=== PATIENT | male | born 1935 | race Caucasian/White ===

== ENCOUNTER 2021-04-13 14:15 | Outpatient (CLI) | payer OTHER ==
[~2021-04-13 14:15] MED LIST: ATACAND4 MG; ATORVASTATIN CA10 MG; BUCALSEP SPRAY30 ML MM; CATAFLAM50 MG PO; Cordarone 200 MG TAB PO; FUROSEMIDE40 MG PO; LANOXIN250 MCG PO; LANOXIN62.5 MCG; LoPRESSOR 50MG TAB PO; ORPH100T PO; TOPROL XL25 M1; VASOTEC2.5 MG; XARELTO10 MG; XARELTO20 MG PO; ZITHROMAX500 MG PO
== END 2021-04-13 14:17 | disposition home or self-care (01) ==
LOC: SONOGRAMA 14:15
PROVIDERS: ATTEND Urology
DX: R31.21 Asymptomatic microscopic hematuria (principal); R35.0 Frequency of micturition

== ENCOUNTER 2022-03-09 16:39 | Emergency (ER) | payer OTHER ==
[~2022-03-09] VITALS: Ht 167.6 cm; Wt 81.6 kg
[2022-03-09] MEDS ORDERED: TOPROL XL100 M1 (17:15)
== END 2022-03-09 18:02 | disposition home or self-care (01) ==
LOC: ER 16:39
DX: L76.21 Postprocedural hemorrhage of skin and subcutaneous tissue following a dermatologic procedure (principal); Z98.890 Other specified postprocedural states; Z88.8 Allergy status to other drugs, medicaments and biological substances; I10 Essential (primary) hypertension

== ENCOUNTER 2023-02-02 11:20 | Emergency (ER) | payer OTHER ==
[~2023-02-02] VITALS: Ht 167.6 cm; Wt 61.2 kg
[~2023-02-02 11:20] MED LIST changes: +TOPROL XL100 M1
[2023-02-02] MEDS ORDERED: BUSPIRONE HCL7.5 MG PO (12:19)
[2023-02-02] MEDS ORDERED: FOLIC ACID20 MG (12:19)
[2023-02-02] MEDS ORDERED: NAMENDA10 MG (12:19)
[2023-02-02] MEDS ORDERED: VITAMIN D-40010 MCG (12:19)
[2023-02-02] MEDS ORDERED: ZYRTEC10 M3 (12:20)
[2023-02-02] MEDS ORDERED: APETIGEN L790 MG/15 (12:20)
[2023-02-02] MEDS ORDERED: ARICEPT10 MG (12:20)
[2023-02-02] MEDS ORDERED: SERTRALINE20 MG/1 ML PO (12:20)
[2023-02-02] MEDS ORDERED: BUSPIRONE HCL10 MG (12:21)
== END 2023-02-02 16:05 | disposition home or self-care (01) ==
LOC: ER 11:20
DX: M54.2 Cervicalgia (principal); I10 Essential (primary) hypertension; G30.9 Alzheimer's disease, unspecified; F02.80 Dementia in other diseases classified elsewhere, unspecified severity, without behavioral disturbance, psychotic disturbance, mood disturbance, and anxiety; Z88.8 Allergy status to other drugs, medicaments and biological substances

== ENCOUNTER 2023-03-14 17:32 | Emergency (ER) | payer OTHER ==
[~2023-03-14] VITALS: Ht 180.3 cm; Wt 81.6 kg
[~2023-03-14 17:32] MED LIST changes: +APETIGEN L790 MG/15; +ARICEPT10 MG; +BUSPIRONE HCL10 MG; +BUSPIRONE HCL7.5 MG PO; +FOLIC ACID20 MG; +NAMENDA10 MG; +SERTRALINE20 MG/1 ML PO; +VITAMIN D-40010 MCG; +ZYRTEC10 M3
== END 2023-03-14 21:00 | disposition home or self-care (01) ==
LOC: ER 17:32
DX: U07.1 COVID-19 (principal); Z88.0 Allergy status to penicillin; Z88.6 Allergy status to analgesic agent

== ENCOUNTER 2023-10-25 11:44 | Inpatient (IN) | payer OTHER ==
[~2023-10-25] VITALS: Ht 172.7 cm; Wt 90.7 kg
[2023-10-25 13:57] LABS: ABG PH 7.434 (7.35-7.45)
[2023-10-25 13:58] LABS: HEMATOCRIT 32.6 % (39.0-48.0); HEMOGLOBIN 10.9 g/dL (13-16.00); MEAN CELL VOLUME 91.5 fL (80.0-100.00); MEAN CORPUSCULAR HEMOGLOBIN 30.6 pg (27.00-32.0); MEAN CORPUSCULAR HGB CONC 33.4 g/dl (32.0-36.0); RED BLOOD COUNT 3.56 M/uL (4.00-6.00); RED CELL DISTRIBUTION WIDTH 17.7 % (11.5-14.5)
[2023-10-25 13:58] LABS: ABG PO2 61.3 mmHg (80-100); ABG pCO2 32.5 mmHg (35-45); BICARBONATE 21.3 mmol/l (23-25); SaO2 91.8 %; Tco2 22.3 mmol/l; allen test SATISFACTORY; o2 32 %; puncture site RADIAL LEFT
[2023-10-25 14:20] LABS: INR 1.35; PARTIAL THROMBOPLASTIN TIME 36.2 SECONDS (22.0-34.0); PROTHROMBIN TIME 13.9 SECONDS (9.0-11.5)
[2023-10-25 14:25] LABS: ALBUMIN 3.1 gm/dL (3.4-5.0); BILIRUBIN TOTAL 3.29 mg/dL (0.3-1.2); CALCIUM 8.6 mg/dL (8.5-10.1); CREATININE SERUM 1.31 mg/dL (0.70-1.30); GFR 51.64; GLOBULINA 3.9 G/DL (2.4-3.5); POTASSIUM 3.04 mEq/L (3.5-5.1)
[2023-10-25 14:40] LABS: PLATELET COUNT 118 K/uL (150-450)
[2023-10-25 22:57] LABS: ALBUMIN 3.3 gm/dL (3.4-5.0); CKMB 3.6 NG/ML (0.5-3.6); DIGOXIN 0.6 ng/ml (0.8-2.0); GFR 46.67; PHOSPHOROUS 3.3 mg/dL (2.5-4.9); POTASSIUM 3.16 mEq/L (3.5-5.1)
[2023-10-25 23:03] LABS: CREATININE SERUM 1.43 mg/dL (0.70-1.30)
[2023-10-26 06:02] LABS: URINE APPEARANCE Clear; URINE BILIRRUBIN Negative (NEGATIVE); URINE BLOOD Large; URINE COLOR Yellow; URINE GLUCOSE Negative (NEGATIVE); URINE LEUKOCYTE Trace; URINE NITRATE Negative; URINE PROTEIN Negative (NEGATIVE); URINE UROBILINOGEN 0.2 E.U./dl
[2023-10-26 06:07] LABS: HEMATOCRIT 30.6 % (39.0-48.0); HEMOGLOBIN 10.3 g/dL (13-16.00); MEAN CELL VOLUME 93.2 fL (80.0-100.00); MEAN CORPUSCULAR HEMOGLOBIN 31.5 pg (27.00-32.0); MEAN CORPUSCULAR HGB CONC 33.7 g/dl (32.0-36.0); RED BLOOD COUNT 3.28 M/uL (4.00-6.00)
[2023-10-26 06:09] LABS: PLATELET COUNT 124 K/uL (150-450)
[2023-10-26 06:12] LABS: ERYTHROCYTE SEDIMENTATION RATE 64 mm/hr
[2023-10-26 06:15] LABS: URINE BACTERIA 41.5 uL (0.0-1933); URINE RBC 86.2 uL (0.0-20.8); URINE WBC 6.9 uL (0.0-23.2)
[2023-10-26 06:17] LABS: URINE EPITHELIAL CELLS 1.2 uL (0.0-38.8)
[2023-10-26 06:22] LABS: INR 1.25; PARTIAL THROMBOPLASTIN TIME 34.7 SECONDS (22.0-34.0); PROTHROMBIN TIME 12.9 SECONDS (9.0-11.5)
[2023-10-26 06:40] LABS: BILIRUBIN TOTAL 3.29 mg/dL (0.3-1.2); BILIRUBIN,CONJUGATED 0.49 mg/dL (0.0-0.2); BILIRUBIN,UNCONJUGATED 2.8 mg/dL (0.0-0.6); CALCIUM 8.8 mg/dL (8.5-10.1); CHOL HDL RATIO 1.7 (0-5.0); CKMB 2.6 NG/ML (0.5-3.6); CREATININE SERUM 1.47 mg/dL (0.70-1.30); GFR 45.21; GLOBULINA 4.1 G/DL (2.4-3.5); POTASSIUM 3.36 mEq/L (3.5-5.1); TOTAL PROTEIN 7.1 gm/dL (6.4-8.2)
[2023-10-26 06:43] LABS: C-REACTIVE PROTEIN 7.79 MG/DL (0.00-0.29)
[2023-10-26 11:47] LABS: CKMB 2.3 NG/ML (0.5-3.6)
[2023-10-27 07:01] LABS: ALBUMIN 2.9 gm/dL (3.4-5.0); BILIRUBIN TOTAL 3.11 mg/dL (0.3-1.2); CREATININE SERUM 1.78 mg/dL (0.70-1.30); GFR 36.25; GLOBULINA 3.4 G/DL (2.4-3.5); TOTAL PROTEIN 6.3 gm/dL (6.4-8.2)
[2023-10-27 08:24] LABS: POTASSIUM 2.8 mEq/L (3.5-5.1)
[2023-10-28 06:23] LABS: HEMATOCRIT 30.1 % (39.0-48.0); HEMOGLOBIN 10.2 g/dL (13-16.00); MEAN CELL VOLUME 91.3 fL (80.0-100.00); MEAN CORPUSCULAR HEMOGLOBIN 30.8 pg (27.00-32.0); MEAN CORPUSCULAR HGB CONC 33.7 g/dl (32.0-36.0); PLATELET COUNT 141 K/uL (150-450); RED CELL DISTRIBUTION WIDTH 17.8 % (11.5-14.5)
[2023-10-28 06:43] LABS: ALBUMIN 2.8 gm/dL (3.4-5.0); BILIRUBIN TOTAL 2.74 mg/dL (0.3-1.2); CALCIUM 7.9 mg/dL (8.5-10.1); CREATININE SERUM 1.48 mg/dL (0.70-1.30); GFR 44.86; GLOBULINA 3.8 G/DL (2.4-3.5); POTASSIUM 3.2 mEq/L (3.5-5.1); TOTAL PROTEIN 6.6 gm/dL (6.4-8.2)
[2023-10-28 09:58] LABS: ABG PH 7.484 (7.35-7.45)
[2023-10-28 09:59] LABS: SaO2 90.5 %
[2023-10-28 10:00] LABS: ABG PO2 54.1 mmHg (80-100); BASE EXCESS 2.1 mmol/l; Tco2 26.1 mmol/l; allen test SATISFACTORY; o2 21 %; puncture site RADIAL RIGHT
[2023-10-29 08:33] LABS: HEMATOCRIT 32.4 % (39.0-48.0); MEAN CELL VOLUME 92.1 fL (80.0-100.00); MEAN CORPUSCULAR HEMOGLOBIN 31.1 pg (27.00-32.0); MEAN CORPUSCULAR HGB CONC 33.8 g/dl (32.0-36.0); PLATELET COUNT 155 K/uL (150-450); RED BLOOD COUNT 3.52 M/uL (4.00-6.00); RED CELL DISTRIBUTION WIDTH 17.4 % (11.5-14.5)
[2023-10-29 09:03] LABS: CALCIUM 8.2 mg/dL (8.5-10.1); CREATININE SERUM 1.48 mg/dL (0.70-1.30); GFR 44.86; MAGNESIUM 1.9 mg/dL (1.8-2.4); POTASSIUM 3.56 mEq/L (3.5-5.1)
[2023-10-29 10:48] LABS: ABG PH 7.512 (7.35-7.45); ABG pCO2 35.3 mmHg (35-45)
[2023-10-29 10:50] LABS: ABG PO2 56.5 mmHg (80-100)
[2023-10-29 10:51] LABS: BASE EXCESS 4.8 mmol/l; BICARBONATE 27.7 mmol/l (23-25); SaO2 92.4 %; Tco2 28.8 mmol/l
[2023-10-29 10:52] LABS: allen test SATISFACTORY; o2 21 %; puncture site RADIAL LEFT
[2023-10-29 15:21] LABS: URINE APPEARANCE Clear; URINE BILIRRUBIN Negative (NEGATIVE); URINE BLOOD Moderate; URINE COLOR Yellow; URINE GLUCOSE Negative (NEGATIVE); URINE LEUKOCYTE Negative; URINE NITRATE Negative; URINE PROTEIN Trace (NEGATIVE)
[2023-10-29 15:26] LABS: URINE BACTERIA 8.8 uL (0.0-1933); URINE RBC 213.9 uL (0.0-20.8); URINE WBC 2.9 uL (0.0-23.2)
[2023-10-29 16:04] LABS: URINE EPITHELIAL CELLS 0.7 uL (0.0-38.8)
[2023-10-31 12:05] LABS: ABG PH 7.531 (7.35-7.45); ABG PO2 66.1 mmHg (80-100); ABG pCO2 32.6 mmHg (35-45); BASE EXCESS 4.5 mmol/l; BICARBONATE 26.7 mmol/l (23-25); SaO2 95.3 %
[2023-10-31 12:06] LABS: Tco2 27.7 mmol/l; allen test SATISFACTORY; o2 21 %; puncture site RADIAL LEFT
[2023-11-01] MEDS ORDERED: LORATADINE10 MG PO (12:18)
[2023-11-01] MEDS ORDERED: ARICEPT10 MG PO (12:19)
[2023-11-01] MEDS ORDERED: TAMIFLU 30 MG PO (12:19)
[2023-11-01] MEDS ORDERED: LEVALBUTER0.31 MG/3 IH (12:19)
[2023-11-01] MEDS ORDERED: LANOXIN125 MCG PO (12:20)
[2023-11-01] MEDS ORDERED: LIPITOR40 M1 PO (12:20)
[2023-11-01] MEDS ORDERED: XARELTO15 MG PO (12:20)
[2023-11-01] MEDS ORDERED: Procardia Xl 30MG TA PO (12:21)
[2023-11-01] MEDS ORDERED: TOPROL XL100 M1 PO (12:21)
[2023-11-01] MEDS ORDERED: MOMETASONE FURO17 GM NASAL (12:23)
[2023-11-01] MEDS ORDERED: BUSPIRONE HCL10 MG PO (12:23)
[2023-11-01] MEDS ORDERED: SERTRALINE HCL50 MG PO (12:23)
[2023-11-01] MEDS ORDERED: NAMENDA10 MG PO (12:23)
[2023-11-01] MEDS ORDERED: FINASTERIDE5 MG PO (12:23)
[2023-11-01] MEDS ORDERED: FUROSEMIDE20 MG PO (12:24)
== END 2023-11-01 16:15 | disposition home or self-care (01) | DRG 292 ==
LOC: ER 11:44 → ICU-2 21:14 → MEDJ 21:14
PROVIDERS: Emergency Medicine; General Practice; Internal Medicine; Internal Medicine Infectious Disease; ADMIT Internal Medicine; ATTEND Internal Medicine
PROC: 4A12X4Z Monitoring of Cardiac Electrical Activity, External Approach (ICD-10-PCS; 2023-10-25)
PROC: 3E0F7SF Introduction of Other Gas into Respiratory Tract, Via Natural or Artificial Opening (ICD-10-PCS; 2023-10-25)
PROC: B246ZZZ Ultrasonography of Right and Left Heart (ICD-10-PCS; principal; 2023-10-26)
PROC: 3E0F7GC Introduction of Other Therapeutic Substance into Respiratory Tract, Via Natural or Artificial Opening (ICD-10-PCS; 2023-10-26)
PROC: 8E0ZXY6 Isolation (ICD-10-PCS; 2023-10-28)
PROC: B020ZZZ Computerized Tomography (CT Scan) of Brain (ICD-10-PCS; 2023-10-30)
DX: I50.23 Acute on chronic systolic (congestive) heart failure (principal); I13.0 Hypertensive heart and chronic kidney disease with heart failure and stage 1 through stage 4 chronic kidney disease, or unspecified chronic kidney disease; J91.8 Pleural effusion in other conditions classified elsewhere; N17.9 Acute kidney failure, unspecified; J10.1 Influenza due to other identified influenza virus with other respiratory manifestations; H05.223 Edema of bilateral orbit; I48.0 Paroxysmal atrial fibrillation; I27.20 Pulmonary hypertension, unspecified; I08.1 Rheumatic disorders of both mitral and tricuspid valves; N18.9 Chronic kidney disease, unspecified; G30.8 Other Alzheimer's disease; F02.80 Dementia in other diseases classified elsewhere, unspecified severity, without behavioral disturbance, psychotic disturbance, mood disturbance, and anxiety; Z95.0 Presence of cardiac pacemaker; Z79.01 Long term (current) use of anticoagulants

== ENCOUNTER 2023-12-30 12:29 | Inpatient (IN) | payer OTHER ==
[~2023-12-30] VITALS: Ht 180.3 cm; Wt 86.2 kg
[~2023-12-30 12:29] MED LIST changes: +ARICEPT10 MG PO; +BUSPIRONE HCL10 MG PO; +FINASTERIDE5 MG PO; +FUROSEMIDE20 MG PO; +LANOXIN125 MCG PO; +LEVALBUTER0.31 MG/3 IH; +LIPITOR40 M1 PO; +LORATADINE10 MG PO; +MOMETASONE FURO17 GM NASAL; +NAMENDA10 MG PO; +Procardia Xl 30MG TA PO; +SERTRALINE HCL50 MG PO; +TAMIFLU 30 MG PO; +TOPROL XL100 M1 PO; +XARELTO15 MG PO
[2023-12-30] MEDS ORDERED: 0.9 % SODIUM CHLORIDE 1,000 ML IV STA (12:55)
[2023-12-30] MEDS ORDERED: NOREPINEPHRINE BITARTRATE 8 MG in DEXTROSE 5 % IN WATER 250 ML IV SCH ×2 (13:00→20:30)
[2023-12-30 13:31] LABS: HEMATOCRIT 41.7 % (39.0-48.0); HEMOGLOBIN 13.8 g/dL (13-16.00); MEAN CELL VOLUME 91.1 fL (80.0-100.00); MEAN CORPUSCULAR HEMOGLOBIN 30.3 pg (27.00-32.0); MEAN CORPUSCULAR HGB CONC 33.2 g/dl (32.0-36.0); PLATELET COUNT 153 K/uL (150-450); RED BLOOD COUNT 4.57 M/uL (4.00-6.00); RED CELL DISTRIBUTION WIDTH 18.5 % (11.5-14.5)
[2023-12-30 13:35] LABS: ABG PH 7.411 (7.35-7.45); ABG PO2 45.5 mmHg (80-100); ABG pCO2 33.6 mmHg (35-45); BASE EXCESS -2.8 mmol/l; BICARBONATE 20.9 mmol/l (23-25); SaO2 81.5 %; Tco2 21.9 mmol/l; allen test SATISFACTORY; puncture site RADIAL RIGHT
[2023-12-30 13:36] LABS: o2 32 %
[2023-12-30 13:49] LABS: URINE APPEARANCE Clear; URINE BILIRRUBIN Negative (NEGATIVE); URINE BLOOD Negative; URINE COLOR Yellow; URINE GLUCOSE Negative (NEGATIVE); URINE LEUKOCYTE Negative; URINE NITRATE Negative; URINE PROTEIN 30 (NEGATIVE)
[2023-12-30 13:52] LABS: URINE BACTERIA 64.2 uL (0.0-1933); URINE EPITHELIAL CELLS 11.4 uL (0.0-38.8); URINE RBC 3.7 uL (0.0-20.8); URINE WBC 10.8 uL (0.0-23.2)
[2023-12-30 13:53] LABS: INR 1.32; PROTHROMBIN TIME 13.6 SECONDS (9.0-11.5)
[2023-12-30 13:57] LABS: ALBUMIN 3.1 gm/dL (3.4-5.0); BILIRUBIN TOTAL 2.01 mg/dL (0.3-1.2); CALCIUM 9.3 mg/dL (8.5-10.1); CREATININE SERUM 2.26 mg/dL (0.70-1.30); GFR 27.52; POTASSIUM 3.16 mEq/L (3.5-5.1); TOTAL PROTEIN 8.1 gm/dL (6.4-8.2)
[2023-12-30 13:59] LABS: CKMB 4.9 NG/ML (0.5-3.6)
[2023-12-30] MEDS ORDERED: NYSTATIN 15 GM,ZINC OXIDE 30 GM,SILVER SULFADIAZINE 50 GM TOP SCH (14:06)
[2023-12-30] MEDS ORDERED: FUROsemide 40 MG/4 ML VIAL IV ONE (15:15)
[2023-12-30] MEDS ORDERED: DONEPEZIL HCL 10 MG TABLET PO SCH (19:35)
[2023-12-30] MEDS ORDERED: levoFLOXacin IN DEXTROSE 5 % 100 ML IV ONE (19:45)
[2023-12-30] MEDS ORDERED: POTASSIUM CHLORIDE 20MEQ/100ML H2O PB IV ONE (19:45)
[2023-12-30] MEDS ORDERED: IPRATROPIUM BROMIDE 0.5 MG/2.5 ML AMPUL.NEB IH SCH (21:00)
[2023-12-30] MEDS ORDERED: FUROsemide 20 MG/2 ML VIAL IV SCH (21:00)
[2023-12-30 21:10] LABS: CKMB 5.7 NG/ML (0.5-3.6)
[2023-12-31] MEDS ORDERED: MEMANTINE HCL 10 MG TABLET PO SCH (09:00)
[2023-12-31] MEDS ORDERED: DIGOXIN 0.125 MG TABLET PO SCH (09:00)
[2023-12-31] MEDS ORDERED: ATORVASTATIN CALCIUM 20 MG TABLET PO SCH (09:00)
[2023-12-31] MEDS ORDERED: RIVAROXABAN 20 MG TABLET PO SCH (09:00)
[2023-12-31] MEDS ORDERED: levoFLOXacin IN DEXTROSE 5 % 250MG/50ML PIGGYBAG IV SCH (09:00)
[2023-12-31] MEDS ORDERED: SERTRALINE HCL 50 MG TABLET PO SCH (09:00)
[2023-12-31] MEDS ORDERED: BUSPIRONE HCL 5 MG TABLET PO SCH (09:00)
[2023-12-31] MEDS ORDERED: LEVOFLOXACIN IN DEXTROSE IV SCH (17:00)
== END 2023-12-31 06:30 | disposition expired | DRG 291 ==
LOC: ER 12:29 → ICU-2 19:44 → ICU 19:44
PROVIDERS: Emergency Medicine; General Practice; ADMIT Internal Medicine; ATTEND Internal Medicine
PROC: 4A033R1 Measurement of Arterial Saturation, Peripheral, Percutaneous Approach (ICD-10-PCS; principal; 2023-12-30)
PROC: 3E0F7GC Introduction of Other Therapeutic Substance into Respiratory Tract, Via Natural or Artificial Opening (ICD-10-PCS; 2023-12-30)
DX: I50.21 Acute systolic (congestive) heart failure (principal); J18.9 Pneumonia, unspecified organism; I42.0 Dilated cardiomyopathy; J81.1 Chronic pulmonary edema; N17.9 Acute kidney failure, unspecified; I11.0 Hypertensive heart disease with heart failure; R09.02 Hypoxemia; R06.03 Acute respiratory distress; Z20.822 Contact with and (suspected) exposure to COVID-19; J10.1 Influenza due to other identified influenza virus with other respiratory manifestations; E87.6 Hypokalemia; I95.9 Hypotension, unspecified; G30.9 Alzheimer's disease, unspecified; F02.80 Dementia in other diseases classified elsewhere, unspecified severity, without behavioral disturbance, psychotic disturbance, mood disturbance, and anxiety; E78.5 Hyperlipidemia, unspecified